=== PATIENT | female | born 1940 | race Caucasian/White ===

== ENCOUNTER 2017-02-24 09:03 | Observation (INO) | payer OTHER, MEDICARE ==
[~2017-02-24] VITALS: Ht 157.5 cm; Wt 94.3 kg
[~2017-02-24 09:03] MED LIST: ALTACE10 M1 PO; ASPIRIN EC81 M1 PO; ASPIRIN81 M4 PO; BENTYL20 MG PO; CLOPIDOGREL75 MG PO; CRESTOR20 MG PO; LANTUS SOL100 UNIT/1 SC; MECLIZINE HCL12.5 M1 PO; NOVOLOG MI100 UNIT/2 SC; PERCOCET 325 MG1 TA2 PO; PERCOCET 5-3251 EACH PO; PLAVIX75 M1 PO; TENORMIN25 M1 PO; TRAMADOL HCL50 M1 PO
--- NOTE | 2017-02-24 09:38 | ED SYNCOPE COMPLAINT ---
History of Present Illness General Chief Complaint: Syncope and Near-Syncope Stated Complaint: S/P SYNCOPE Source: patient, family, old records Exam Limitations: no limitations Vital Signs & Intake/Output Vital Signs & Intake/Output Vital Signs Date Time Temp Pulse Resp B/P B/P Pulse O2 O2 Flow FiO2 Mean Ox Delivery Rate 02/24 1729 97.5 60 18 172/74 98 Room Air Room Air 02/24 1404 97.8 60 20 170/84 99 Room Air 02/24 1228 168/80 02/24 1205 98.0 55 20 192/90 02/24 1144 192/90 02/24 1139 98.0 55 20 210/86 99 Room Air 02/24 1000 97 Room Air 02/24 0948 68 162/68 02/24 0906 97.8 66 18 196/76 96 Room Air Allergies Coded Allergies: No Known Allergies (01/06/16) Triage Note: 76 YEAR OLD FEMALE TO ER WITH HER DAUGHTER, PT IS FROM [facility] AND THIS AM HAD A SYNCOPLE EPISODE WHILE ON TOILET, PT STATES THAT SHE HAD TERRIBLE ABD CRAMPING AND WAS SITTING ON TOILET AND PASSED OUT, STATES THAT THE AIDE HELPED HER UP, DENIES HEAD STRIKE BUT STATES THAT R FLANK HAS SOME PAIN WHEN YOU TOUCH IT, BUT NOT NOW. PT STATES THAT SHE ATE GRAPES LAST PM AND THIS HAPPENS EVERY TIME SHE EATS THEM. DENIES CP/SOB. PT ALERT AND ORIENTED AND REFUSES WHEEL CHAIR Triage Nurses Notes Reviewed? yes Timing: single episode today Precipitating Factors: lightheadedness Loss of Consciousness: brief (seconds) Associated Symptoms: abdominal pain : No Patient currently breastfeeds: No HPI: 76yo female with hx of CAD s/p UT on ASA and Plavix, prior CVA, orthostatic hypotension presents to ED with daughter from assisted living [facility] facility following syncopal episode. Patient states that she woke up this morning feeling in her usual state of health. She is to the bathroom, was trying to have a bowel movement and was straining. She experienced abdominal cramping at this time and then felt as though she was going to pass out and lightheaded and the next thing she knew she was on the floor. Patient thinks she probably passed out for a few seconds. Patient had an aide who was able to help her up and was refusing ambulance to Hospital at that time. Patient has had prior episodes of syncope while having a bowel movement in the past. She is currently under workup for abnormal EKGs, her primary care physician believe she had an undetected UT recently. Patient is scheduled for carotid Doppler studies and echocardiogram next week. Patient complaining of some low back pain currently. The patient denies chest pain, shortness of breath, nausea, vomiting , diarrhea, constipation, hematochezia, headache, visual changes, numbness, tingling. (Oxana NICK,Magalie Myers) Reconcile Medications Aspirin (Ecotrin*) 81 MG TABLET.DR 1 TAB PO DAILY HEART HEALTH (Reported) Atenolol (Tenormin) 25 MG TABLET 1 TAB PO DAILY BP (Reported) Atorvastatin Calcium 80 MG TABLET 1 TAB PO QHS CHOLESTEROL (Reported) Clopidogrel Bisulfate (Plavix) 75 MG TABLET 1 TAB PO DAILY CVA Please restart this medication after the lumbar puncture on 01/17/16. Please monitor for any evidence of bleeding prior to this Cyanocobalamin (Vitamin B-12) (Vitamin B-12) 500 MCG TABLET 1 TAB PO DAILY SUPPLEMENT (Reported) Furosemide (Lasix) 20 MG TABLET 0.5 TAB PO EOD DIURETIC (Reported) Insulin Aspart Protam & Aspart (Novolog Mix 70-30 Flexpen Syrn) 100 UNIT/ML (70- 30) INSULN.PEN 25 UNITS SC QAM DIABETES (Reported) Insulin Glargine,Hum.rec.anlog (Lantus Solostar) 100 UNIT/ML (3 ML) INSULN.PEN 15 UNITS SC QPM DIABETES (Reported) Insulin Lispro (Humalog) (Unknown Strength) VIAL (Unknown Dose) SC ONCE PRN DM (Reported) before lunch. according to SS Meclizine HCl 12.5 MG TABLET 1 TAB PO TID PRN VERTIGO Ramipril (Altace) 5 MG CAPSULE 1 CAP PO 2000 BP (Reported) (Veronica POWELL,Elizabeth) Past History Travel History Traveled to [place] past 21 day No Medical History Any Pertinent Medical History? 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 No (Magalie Crawford) Review of Systems Review of Systems Constitutional: Reports: no symptoms. EENTM: Reports: no symptoms. Respiratory: Reports: no symptoms. Cardiovascular: Reports: see HPI. GI: Reports: see HPI. Genitourinary: Reports: no symptoms. Musculoskeletal: Reports: see HPI. Skin: Reports: no symptoms. Neurological/Psychological: Reports: see HPI. All Other Systems: Reviewed and Negative (Magalie Crawford) Physical Exam Physical Exam General Appearance: well developed/nourished, no apparent distress, alert, awake Head: atraumatic, normal appearance Eyes: Bilateral: normal appearance, PERRL, EOMI. Ears, Nose, Throat: normal pharynx, normal ENT inspection, hearing grossly normal Neck: normal inspection, supple, full range of motion, no midline tenderness Respiratory: normal breath sounds, no respiratory distress, lungs clear Cardiovascular: bradycardia Gastrointestinal: normal bowel sounds, soft, non-tender, no organomegaly Extremities: normal inspection, normal range of motion Psychiatric: awake, alert, oriented x 3 Cranial Nerves: normal hearing, normal speech, PERRL, CN II-XII intact Coordination/Gait: normal finger to nose Motor/Sensory: no motor/sensory deficits Skin: intact, normal color, warm/dry Core Measures ACS in differential dx? Yes CVA/TIA Diagnosis: No Sepsis Present: No Sepsis Focused Exam Completed? No (Magalie Crawford) Progress Differential Diagnosis: AMI, aortic dissection, aortic valve, drug induced syncope, orthostatic syncope, other valvular disease, pericardial tamponade, pulmonary embolus, TIA/CVA, vasodepressor syncope Plan of Care: Orders Procedure Date/time Status Heart Healthy Diet 02/24 D Active TROPONIN LEVEL 02/24 2200 Active EKG 02/24 2200 Active Vital Signs 02/24 1810 Active Teach/Educate 02/24 1810 Active Pain Treatment and Response 02/24 1810 Active Nutritional Intake, Monitor 12/23 1810 Active Isolation 02/24 1810 Active Intake & Output 02/24 1810 Active Patient Care Conference 02/24 1810 Active Activity/Ambulation 02/24 1810 Active TROPONIN LEVEL 02/24 1600 Complete EKG 02/[address] in observation 02/24 1519 Active ED Holding Orders 02/24 1519 Active ECHOCARDIOGRAM 02/24 1501 Active Pathway - chart 02/24 1459 Active House Staff 02/24 1459 Active Patient Data 02/24 1459 Active Code Status 02/24 1459 Active Add-on Test (ER Only) 02/24 1456 Active Patient Data 02/24 1357 Active Add-on Test (ER Only) 02/24 1101 Active FingerStick- Glucose 02/24 0949 Active Intake & Output 02/24 0948 Active THYROID STIMULATING HORMONE 02/24 0942 Complete LACTIC ACID 02/24 0942 Complete FREE T4 02/24 0942 Complete CULTURE,URINE 02/24 0934 Active URINALYSIS 02/24 0934 Complete TROPONIN LEVEL 02/24 0934 Complete PARTIAL THROMBOPLASTIN TIME 02/24 0934 Complete PROTHROMBIN TIME 02/24 0934 Complete COMPREHENSIVE METABOLIC PANEL 02/24 0934 Complete CBC WITHOUT DIFFERENTIAL 02/24 0934 Complete EKG 02/24 0912 Active VTE Mechanical Prophylaxis 02/24 UNK Active MISTAKE 02/24 UNK Active Telemetry/Waste Hand 02/24 UNK Active Current Medications Sig/Vianey Start time Last Medication Dose Stop Time Status Admin Aspirin Buffered 81 MG DAILY 02/25 1000 AC (Ecotrin) Atenolol 25 MG DAILY 02/25 1000 AC (Tenormin) Clopidogrel Bisulfate 75 MG DAILY 02/25 1000 AC (Plavix) Lisinopril 5 MG DAILY 02/25 1000 AC (Prinivil) Atorvastatin Calcium 80 MG AT BEDTIME 02/24 2200 AC (Lipitor) Heparin Sodium 5,000 UNIT Q8 02/24 2200 AC (Porcine) Insulin Detemir 7 UNITS BID 02/24 2200 AC (Levemir) Acetaminophen 650 MG Q6 02/24 1800 AC (Tylenol) Insulin Aspart 0 TIDAC 02/24 1700 AC (NovoLOG) Laboratory Tests 02/24/17 1653: Troponin I 0.02 02/24/17 1133: Urinalysis LIGHT H, Urine Color YEL, Urine Clarity CLEAR, Urine pH 6.0, Ur Specific [place] 1.020, Urine Protein 30 H, Urine Ketones NEG, Urine Nitrite NEG, Urine Bilirubin NEG, Urine Urobilinogen 0.2, Ur Leukocyte Esterase SMALL H , Ur Microscopic SEDIMENT EXAMINED, Urine RBC RARE, Urine WBC 3-5 H, Ur Epithelial Cells MOD H, Urine Bacteria FEW H, Hyaline Casts RARE H, Granular Casts RARE H, Urine Hemoglobin TRACE-LYSED, Urine Glucose NEG 02/24/17 0942: Anion Gap 15, Estimated GFR 22 L, BUN/Creatinine Ratio 19.1, Glucose 164 H, Lactic Acid 1.6, Calcium 9.1, Total Bilirubin 0.6, AST 31, ALT 36, Alkaline Phosphatase 118, Troponin I 0.01, Total Protein 6.7, Albumin 3.8, Globulin 2.9, Albumin/Globulin Ratio 1.3, TSH 2.080, Free T4 1.31, PT 11.7, INR 1.12, APTT 67 H, CBC w Diff NO MAN DIFF REQ, RBC 4.48, MCV 86.8, MCH 28.0, RDW 14.5, MPV 10.6 H, Gran % 73.2, Lymphocytes % 13.2 L, Monocytes % 9.7 H, Eosinophils % 3.3, Basophils % 0.6, Absolute Granulocytes 5.6, Absolute Lymphocytes 1.0 L, Absolute Monocytes 0.7 H, Absolute Eosinophils 0.3, Absolute Basophils 0, PUBS MCHC 32.3 L Microbiology 02/24 1133 URINE ROUT: Urine Culture - RECD The patient had syncopal episode today following bowel movement, likely vasovagal however patient's primary care doctor is concerned of a recent missed UT the patient was not evaluated for given EKG changes at primary care doctor's office. Today there have been no EKG changes from old EKG. Given this history continued telemetry monitoring is recommended. Spoke with Dr. Stone regarding patient who will consult patient tomorrow and agrees with plan of carotid ultrasound and echocardiogram are possible. Discussed this patient with case management who agreed that telemetry observation is acceptable given her clinical presentation. Discussed this patient with hospitalist Dr. Avila who accepts patient for tele observation. Diagnostic Imaging: Viewed by Me: Radiology Read. Discussed w/RAD: Radiology Read. Radiology Impression: PATIENT: SEGUNDO NORWOOD PRESENT AGE: 76 PATIENT ACCOUNT NO: [id number] : 38 LOCATION: [facility] ORDERING PHYSICIAN: Magalie NICK SERVICE DATE: 02/24/17 EXAM TYPE: CAT - CT CERV SPINE WO IV CONTRAST; CT HEAD WO IV CONTRAST EXAMINATION: CT HEAD W/O IV CONTRAST CT CERVICAL SPINE W/O IV CONTRAST CLINICAL INFORMATION: Syncopal episode today. Evaluate intracranial hemorrhage, fracture and/or malalignment. COMPARISON: Head CT, 01/06/2016. TECHNIQUE: Head - Contiguous axial imaging of the head was performed from the skull base to the vertex without the administration of intravenous contrast, and axial images are reconstructed at 0.625 mm, 2.5 mm and 5 mm slice thickness. Cervical spine - A volumetric, helical CT acquisition of the cervical spine was obtained without contrast; in addition to the standard set of axial images, multiplanar reformatted images were provided in the coronal and sagittal imaging planes. DLP: 930 mGy-cm (total ) FINDINGS: HEAD: There is an old, smoothly marginated, 1.5 cm AP soft tissue nodule of the left superior scalp, unchanged compared to 01/06/2016. No acute scalp hematoma. No intracranial hemorrhage, extra-axial fluid collection, mass or midline shift. Chronic patchy hypoattenuation within supratentorial white matter is compatible with microvascular ischemic change. Old left posterior cerebral artery territory infarct involving the occipital lobe. Otherwise, the mcclelland-white matter differentiation is maintained and there is no evidence of an acute major vascular territory infarction. The cerebral hemispheres are chronically atrophied and there is commensurate prominence of ventricles and sulci. There is atherosclerotic calcification of bilateral cavernous carotid and vertebral arteries. The calvarium is intact and the visualized paranasal sinuses , mastoid air cells and middle ear cavities are well aerated. CERVICAL SPINE: No acute fractures within anterior or posterior elements of the cervical spine. No prevertebral soft tissue swelling. The occipital condyles, atlas, axis and atlantoaxial articulation are intact. The cervical spine exhibits loss of lordotic curvature above the C5-C6 level. The ossification of the posterior longitudinal ligament at C2-C3 narrows the central spinal canal to 0.7 cm AP. At C5-C6, there is moderate loss of disc space, traction osteophyte formation and uncovertebral joint hypertrophy with osteophytes producing mild left and moderate right foraminal stenosis at this level. There is minimal degenerative retrolisthesis of C5 on C6. At C6-C7, there is mild degenerative disc space narrowing. No evidence of traumatic subluxation. There is a multinodular thyroid gland with left thyroid lobe larger than the right lobe. The largest nodule within the left thyroid lobe appears to measure up to 2 cm in size. Given the size of nodules, ultrasound imaging follow-up would be appropriate. The visualized lung apices are normal. The patient has a right chest wall medication port with partial visualization of the central catheter within the superior vena cava. IMPRESSION: 1. No acute intracranial pathology compared to 01/06/2016. 2. No acute fracture or traumatic subluxation in the degenerated cervical spine. 3. 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 4. Multinodular thyroid gland with largest left thyroid nodule of approximately 2 cm size. If not already performed at another institution, recommend thyroid ultrasound follow-up. DICTATED BY: Octavio Way MD DATE/TIME DICTATED:02/24/171052 JANITOR AND CLEANER:DAYANA DATE/TIME TRANSCRIBED:02/24/171052 CONFIDENTIAL, DO NOT COPY WITHOUT APPROPRIATE AUTHORIZATION. <Electronically signed in Other Vendor System> SIGNED BY: Octavio Way MD 02/24/17 1112, PATIENT: SEGUNDO NORWOOD PRESENT AGE: 76 PATIENT ACCOUNT NO: [id number] : 38 LOCATION: [facility] ORDERING PHYSICIAN: Magalie NICK SERVICE DATE: 02/24/17-1101 EXAM TYPE: CAT - CT ABD & PELVIS W/O IV CONTRAS EXAMINATION: CT ABDOMEN AND PELVIS WITHOUT CONTRAST CLINICAL INFORMATION: 76-year-old female with abdominal pain. Syncopal episode. COMPARISON: 04/01/2014. TECHNIQUE: Multidetector volumetric imaging was performed from the superior aspect of the liver through the pubic symphysis. Sagittal and coronal reformatted images were obtained on the technologist's workstation. In addition, reformatted images of the lumbar spine were generated at the technologist workstation. 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 LUNG BASES: Scattered linear, hazy opacities of atelectasis in the visualized bases. LIVER, GALLBLADDER, AND BILIARY TREE: Liver has normal size, contour and attenuation. Gallbladder is surgically absent and common bile duct measures up to 6-7 mm diameter. No intrahepatic bile duct dilatation. PANCREAS: Chronic, diffuse atrophy of the pancreas without evidence of focal lesion on these noncontrast images. No peripancreatic edema. SPLEEN: There is an old, somewhat fan-shaped area of calcification with overlying capsular retraction in the spleen, likely sequela of remote infarction. The splenic artery is densely calcified. ADRENAL GLANDS: Unremarkable. KIDNEYS AND URETERS: Chronic mild bilateral renal cortical atrophy and multiple renal arterial calcifications. No overt evidence of superimposed nephrolithiasis. No evidence of ureterolithiasis or hydroureteronephrosis. BLADDER: Unremarkable. GASTROINTESTINAL TRACT: Stomach is unremarkable. Loops of bowel are normal in caliber. The appendix is normal. No evidence of focal bowel wall edema, pneumatosis intestinalis or pneumoperitoneum. There are few scattered colonic diverticula without diverticulitis. No ascites or abscess. There is minimal edema along the anterior renal fascia. ABDOMINAL WALL: Small, 1.1 cm wide midline fascial defect in the periumbilical region with small fat-containing hernia (image 399, series 3). LYMPH NODES: A left retrocrural lymph node measuring 0.7 cm short axis dimension has increased in size compared to 2014. Multiple prominent lymph nodes are present within the retroperitoneum. The largest left para-aortic lymph node is 1.3 cm AP (image 243, series 3). The largest retrocaval lymph node is 1 cm AP. A left external iliac lymph node is 0.9 cm in short axis dimension. No inguinal lymphadenopathy. VASCULAR: Atherosclerotic calcification of the abdominal aorta and iliofemoral arteries without aneurysm. No retroperitoneal hematoma. There is dense atherosclerotic calcification of splenic and renal arteries. PELVIC VISCERA: Status post hysterectomy. No pelvic mass or free fluid. OSSEOUS STRUCTURES: The visualized ribs of the lower chest are intact. Pelvic bones and proximal femurs are intact. Mild osteoarthritis of both hips. Osteoarthritis of sacral iliac joints, as well. No sacral fracture. The reconstructed images of the lumbar spine are compared with abdomen-pelvis CT images of 04/01/2014. No acute findings are seen. The lumbar vertebral alignment is maintained. Bones appear diffusely osteoporotic. There is transitional lumbosacral anatomy with sacralization of the hypertrophied left L5 transverse process. Chronic, mild concave depression and small Schmorl's node of the L1 superior endplate. No acute fractures within anterior or posterior elements of the lumbar spine. There is mild levocurvature. At L3-L4 and L4-L5, there is chronic degenerative disc space narrowing, traction osteophyte formation and vacuum disc phenomenon. There is chronic multifactorial mild central canal stenosis at L3-L4 and L4-L5. IMPRESSION: 1. Severe atherosclerotic disease of aorta and branch vessels. No abdominal aorta aneurysm or retroperitoneal hematoma. There are no noncontrast imaging findings to raise suspicion for a dissection within the normal sized abdominal aorta. 2. No acute findings along the gastrointestinal tract. 3. The retroperitoneal lymphadenopathy is new compared to 04/01/2014. Further workup is recommended. 4. No acute fracture or subluxation within the chronically degenerated lumbar spine compared to 04/01/2014. DICTATED BY: Octavio Way MD DATE/TIME DICTATED:02/24 JANITOR AND CLEANER:DAYANA DATE/TIME TRANSCRIBED:02/24/171200 CONFIDENTIAL, DO NOT COPY WITHOUT APPROPRIATE AUTHORIZATION. <Electronically signed in Other Vendor System> SIGNED BY: Octavio Way MD 02/24/17 1229 CXR Impression: PATIENT: SEGUNDO NORWOOD PRESENT AGE: 76 PATIENT ACCOUNT NO: [id number] : 38 LOCATION: [facility] ORDERING PHYSICIAN: Magalie NICK SERVICE DATE: 02/24/17 EXAM TYPE: RAD - XRY-CHEST XRAY, PA AND LATERAL EXAMINATION: XR CHEST CLINICAL INFORMATION: Syncope COMPARISON: Chest radiograph from 04/01/2014 TECHNIQUE: 2 views of the chest were obtained. FINDINGS: There is a right internal jugular approach CT PowerPort with tip at the superior cavoatrial junction. Mildly prominent cardiac silhouette is unchanged. The mediastinal and hilar contours are unchanged. There is mildly prominent central pulmonary vasculature possibly representing congestion, without overt edema. No consolidative airspace opacity. No pleural effusion or pneumothorax. Multilevel degenerative change of the thoracic spine. Remote right proximal humerus fracture. IMPRESSION: Possible mild pulmonary vascular congestion. No overt edema. No airspace consolidation or pleural effusion. DICTATED BY: Sonya Rajput MD DATE/TIME DICTATED:02/24/171024 JANITOR AND CLEANER:SERRANO DATE/TIME TRANSCRIBED:02/24/171024 CONFIDENTIAL, DO NOT COPY WITHOUT APPROPRIATE AUTHORIZATION. <Electronically signed in Other Vendor System> SIGNED BY: Sonya Rajput MD 02/24/17 1034 Initial ED EKG: sinus bradycardia @59bpm, nonspecific ST changes Prior EKG: unchanged (01/07/16) (Oxana NICK,Magalie Myers) Departure Departure Disposition: STILL A PATIENT Condition: Stable Clinical Impression Primary Impression: Episode of syncope Qualifiers: Syncope type: unspecified Qualified Code: R55 - Syncope and collapse Secondary Impressions: CHF (congestive heart failure) Qualifiers: Congestive heart failure type: unspecified congestive heart failure type Congestive heart failure chronicity: unspecified congestive heart failure chronicity Qualified Code: I50.9 - Heart failure, unspecified Orthostatic hypotension Referrals: Mildred POWELL,Saman Kuhn (PCP/Family) Departure Forms: Customer Survey General Discharge Information Observation Note Spoke With: Margarita POWELL,Shima Physician Advisor Notified: CURT GONZALEZ DO Place Patient In: Non-ED OBS Care Area Rationale for Observation: My rational for observation is as follows [syncopal episode today with orthostatic hypotension, mild CHF, hypertension and possibly requiring IV antihypertensives, requiring cardiology consults with carotid ultrasound and echocardiogram]. (Magalie Crawford) PA/DISTILLERY MILLER Co-Sign Statement Statement: ED Attending supervision documentation- [X] I saw and evaluated the patient. I have also reviewed all the pertinent lab results and diagnostic results. I agree with the findings and the plan of care as documented in the PA's/DISTILLERY MILLER's documentation. [X] I have reviewed the ED Record and agree with the PA's/DISTILLERY MILLER's documentation. [] Additions or exceptions (if any) to the PAs/DISTILLERY MILLER's note and plan are summarized below: [] (Veronica POWELL,Elizabeth)
[2017-02-24 10:02] LABS: ABSOLUTE BASOPHIL COUNT 0 /CUMM (0.0-0.2); ABSOLUTE EOSINOPHIL COUNT 0.3 /CUMM (0.0-0.7); ABSOLUTE GRANULOCYTE CT 5.6 /CUMM (1.4-6.5); ABSOLUTE MONOCYTE COUNT 0.7 /CUMM (0.10-0.60); BASOPHIL % 0.6 % (0.0-2.0); EOSINOPHIL % 3.3 % (0-5); GRANULOCYTE % 73.2 % (42.2-75.2); HEMATOCRIT 38.9 % (37-47); MEAN CORPUSCULAR HGB CONC 32.3 G/DL (33.0-37.0); MEAN CORPUSCULAR VOLUME 86.8 FL (81.0-99.0); MEAN PLATELET VOLUME 10.6 FL (7.4-10.4); PLATELET COUNT 236 /CUMM (130-400); RBC DISTRIBUTION WIDTH 14.5 % (11.5-14.5); RED BLOOD CELL CT 4.48 /CUMM (4.20-5.40); WHITE BLOOD CELL COUNT 7.7 /CUMM (4.8-10.8)
[2017-02-24 10:09] LABS: PT 11.7 SEC (9.4-12.5)
--- NOTE | 2017-02-24 10:34 | RADIOLOGY REPORT ---
EXAMINATION: XR CHEST CLINICAL INFORMATION: Syncope COMPARISON: Chest radiograph from 04/01/2014 TECHNIQUE: 2 views of the chest were obtained. FINDINGS: There is a right internal jugular approach CT PowerPort with tip at the superior cavoatrial junction. Mildly prominent cardiac silhouette is unchanged. The mediastinal and hilar contours are unchanged. There is mildly prominent central pulmonary vasculature possibly representing congestion, without overt edema. No consolidative airspace opacity. No pleural effusion or pneumothorax. Multilevel degenerative change of the thoracic spine. Remote right proximal humerus fracture. IMPRESSION: Possible mild pulmonary vascular congestion. No overt edema. No airspace consolidation or pleural effusion.
[2017-02-24 11:04] LABS: PTT 67 SEC (25-37)
--- NOTE | 2017-02-24 11:12 | CT SCAN REPORT ---
EXAMINATION: CT HEAD W/O IV CONTRAST CT CERVICAL SPINE W/O IV CONTRAST CLINICAL INFORMATION: Syncopal episode today. Evaluate intracranial hemorrhage, fracture and/or malalignment. COMPARISON: Head CT, 01/06/2016. TECHNIQUE: Head - Contiguous axial imaging of the head was performed from the skull base to the vertex without the administration of intravenous contrast, and axial images are reconstructed at 0.625 mm, 2.5 mm and 5 mm slice thickness. Cervical spine - A volumetric, helical CT acquisition of the cervical spine was obtained without contrast; in addition to the standard set of axial images, multiplanar reformatted images were provided in the coronal and sagittal imaging planes. DLP: 930 mGy-cm (total) FINDINGS: HEAD: There is an old, smoothly marginated, 1.5 cm AP soft tissue nodule of the left superior scalp, unchanged compared to 01/06/2016. No acute scalp hematoma. No intracranial hemorrhage, extra-axial fluid collection, mass or midline shift. Chronic patchy hypoattenuation within supratentorial white matter is compatible with microvascular ischemic change. Old left posterior cerebral artery territory infarct involving the occipital lobe. Otherwise, the mcclelland-white matter differentiation is maintained and there is no evidence of an acute major vascular territory infarction. The cerebral hemispheres are chronically atrophied and there is commensurate prominence of ventricles and sulci. There is atherosclerotic calcification of bilateral cavernous carotid and vertebral arteries. The calvarium is intact and the visualized paranasal sinuses, mastoid air cells and middle ear cavities are well aerated. CERVICAL SPINE: No acute fractures within anterior or posterior elements of the cervical spine. No prevertebral soft tissue swelling. The occipital condyles, atlas, axis and atlantoaxial articulation are intact. The cervical spine exhibits loss of lordotic curvature above the C5-C6 level. The ossification of the posterior longitudinal ligament at C2-C3 narrows the central spinal canal to 0.7 cm AP. At C5-C6, there is moderate loss of disc space, traction osteophyte formation and uncovertebral joint hypertrophy with osteophytes producing mild left and moderate right foraminal stenosis at this level. There is minimal degenerative retrolisthesis of C5 on C6. At C6-C7, there is mild degenerative disc space narrowing. No evidence of traumatic subluxation. There is a multinodular thyroid gland with left thyroid lobe larger than the right lobe. The largest nodule within the left thyroid lobe appears to measure up to 2 cm in size. Given the size of nodules, ultrasound imaging follow-up would be appropriate. The visualized lung apices are normal. The patient has a right chest wall medication port with partial visualization of the central catheter within the superior vena cava. IMPRESSION: 1. No acute intracranial pathology compared to 01/06/2016. 2. No acute fracture or traumatic subluxation in the degenerated cervical spine. 3. 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 4. Multinodular thyroid gland with largest left thyroid nodule of approximately 2 cm size. If not already performed at another institution, recommend thyroid ultrasound follow-up.
--- NOTE | 2017-02-24 12:29 | CT SCAN REPORT ---
EXAMINATION: CT ABDOMEN AND PELVIS WITHOUT CONTRAST CLINICAL INFORMATION: 76-year-old female with abdominal pain. Syncopal episode. COMPARISON: 04/01/2014. TECHNIQUE: Multidetector volumetric imaging was performed from the superior aspect of the liver through the pubic symphysis. Sagittal and coronal reformatted images were obtained on the technologist's workstation. In addition, reformatted images of the lumbar spine were generated at the technologist workstation. DLP: 986 mGy-cm FINDINGS: PHARMACY STUDENT: Obese body habitus. LUNG BASES: Scattered linear, hazy opacities of atelectasis in the visualized bases. LIVER, GALLBLADDER, AND BILIARY TREE: Liver has normal size, contour and attenuation. Gallbladder is surgically absent and common bile duct measures up to 6-7 mm diameter. No intrahepatic bile duct dilatation. PANCREAS: Chronic, diffuse atrophy of the pancreas without evidence of focal lesion on these noncontrast images. No peripancreatic edema. SPLEEN: There is an old, somewhat fan-shaped area of calcification with overlying capsular retraction in the spleen, likely sequela of remote infarction. The splenic artery is densely calcified. ADRENAL GLANDS: Unremarkable. KIDNEYS AND URETERS: Chronic mild bilateral renal cortical atrophy and multiple renal arterial calcifications. No overt evidence of superimposed nephrolithiasis. No evidence of ureterolithiasis or hydroureteronephrosis. BLADDER: Unremarkable. GASTROINTESTINAL TRACT: Stomach is unremarkable. Loops of bowel are normal in caliber. The appendix is normal. No evidence of focal bowel wall edema, pneumatosis intestinalis or pneumoperitoneum. There are few scattered colonic diverticula without diverticulitis. No ascites or abscess. There is minimal edema along the anterior renal fascia. ABDOMINAL WALL: Small, 1.1 cm wide midline fascial defect in the periumbilical region with small fat-containing hernia (image 399, series 3). LYMPH NODES: A left retrocrural lymph node measuring 0.7 cm short axis dimension has increased in size compared to 01/30/2015. Multiple prominent lymph nodes are present within the retroperitoneum. The largest left para-aortic lymph node is 1.3 cm AP (image 243, series 3). The largest retrocaval lymph node is 1 cm AP. A left external iliac lymph node is 0.9 cm in short axis dimension. No inguinal lymphadenopathy. VASCULAR: Atherosclerotic calcification of the abdominal aorta and iliofemoral arteries without aneurysm. No retroperitoneal hematoma. There is dense atherosclerotic calcification of splenic and renal arteries. PELVIC VISCERA: Status post hysterectomy. No pelvic mass or free fluid. OSSEOUS STRUCTURES: The visualized ribs of the lower chest are intact. Pelvic bones and proximal femurs are intact. Mild osteoarthritis of both hips. Osteoarthritis of sacral iliac joints, as well. No sacral fracture. The reconstructed images of the lumbar spine are compared with abdomen-pelvis CT images of 04/01/2014. No acute findings are seen. The lumbar vertebral alignment is maintained. Bones appear diffusely osteoporotic. There is transitional lumbosacral anatomy with sacralization of the hypertrophied left L5 transverse process. Chronic, mild concave depression and small Schmorl's node of the L1 superior endplate. No acute fractures within anterior or posterior elements of the lumbar spine. There is mild levocurvature. At L3-L4 and L4-L5, there is chronic degenerative disc space narrowing, traction osteophyte formation and vacuum disc phenomenon. There is chronic multifactorial mild central canal stenosis at L3-L4 and L4-L5. IMPRESSION: 1. Severe atherosclerotic disease of aorta and branch vessels. No abdominal aorta aneurysm or retroperitoneal hematoma. There are no noncontrast imaging findings to raise suspicion for a dissection within the normal sized abdominal aorta. 2. No acute findings along the gastrointestinal tract. 3. The retroperitoneal lymphadenopathy is new compared to 04/01/2014. Further workup is recommended. 4. No acute fracture or subluxation within the chronically degenerated lumbar spine compared to 04/01/2014.
[2017-02-24] MEDS ORDERED: HUMALOG100 UNIT/2 SC (13:21)
[2017-02-24] MEDS ORDERED: POLYETHYLENE GL17 GM PO (13:22)
[2017-02-24] MEDS ORDERED: ATORVASTATIN CA80 M1 PO (13:22)
[2017-02-24] MEDS ORDERED: ONDANSETRON HCL4 MG PO (13:23)
[2017-02-24] MEDS ORDERED: TRAZODONE HCL50 M1 PO ×2 (13:24→13:25)
[2017-02-24] MEDS ORDERED: ACETAMINOPHEN325 M2 PO (13:25)
[2017-02-24] MEDS ORDERED: ALTACE5 M2 PO (13:25)
[2017-02-24] MEDS ORDERED: LASIX20 M1 PO (13:27)
[2017-02-24] MEDS ORDERED: VITAMIN B-12500 MC2 PO (13:28)
--- NOTE | 2017-02-24 16:01 | History & Physical ---
Rochelle Francis 02/24/17 1600: General Information and HPI Source of Information: patient, family Exam Limitations: no limitations History of Present Illness: She 76-year-old woman with past medical history of diabetes, coronary artery disease, [place] stroke, history of endometrial cancer stage IIIc. Status post total abdominal hysterectomy and bilateral salpingo-oophorectomy. status post 3 cycles of carbo/Taxol, completed 2 fractions IVRT, history of hypertension and CKD. She presented to ED with daughter from assisted living [facility] facility following syncopal episode. Patient states that she woke up this morning feeling in her usual state of health. She went to the bathroom, was trying to have a bowel movement and was straining. She experienced abdominal cramping at this time and then felt as though she was going to pass out and lightheaded and the next thing she knew she was on the floor. Patient thinks she probably passed out for a few seconds. She denies any presyncopal symptoms like chest pain or discomfort, palpitations, vision changes, diaphoresis. She denies any tongue bite, urinary or bowel incontinence. She denies any confusion after getting consciousness. She pulled the cord and for help. According to the daughter she had dizziness and vertigo since September this year and sees Dr. Santana. She has been started on meclizine for vertigo but it's not helping. Dr. Santana also explained that her dizziness and vertigo could be because she is not getting enough blood supply to her brain. Her blood pressure medication dose was also decreased from 10 mg to 5 mg. She also developed lower extremity swelling 3 weeks ago and saw her PCP who started her on 10 mg of Lasix every other day that according to patient is not helping much. Currently she is complaining of back pain. Denies any chest pain or discomfort, palpitations, dizziness or lightheadedness right now, diaphoresis, nausea. Denies any change in urinary or bowel habits. She also denies any tingling or numbness of any part of her body. Allergies/Medications Allergies: Coded Allergies: No Known Allergies (01/06/16) Home Med list Aspirin (Ecotrin*) 81 MG TABLET. 1 TAB PO DAILY HEART HEALTH (Reported) Atenolol (Tenormin) 25 MG TABLET 1 TAB PO DAILY BP (Reported) Atorvastatin Calcium 80 MG TABLET 1 TAB PO QHS CHOLESTEROL (Reported) Clopidogrel Bisulfate (Plavix) 75 MG TABLET 1 TAB PO DAILY CVA Please restart this medication after the lumbar puncture on 01/17/16. Please monitor for any evidence of bleeding prior to this Cyanocobalamin (Vitamin B-12) (Vitamin B-12) 500 MCG TABLET 1 TAB PO DAILY SUPPLEMENT (Reported) Furosemide (Lasix) 20 MG TABLET 0.5 TAB PO EOD DIURETIC (Reported) Insulin Aspart Protam & Aspart (Novolog Mix 70-30 Flexpen Syrn) 100 UNIT/ML (70- 30) INSULN.PEN 25 UNITS SC QAM DIABETES (Reported) Insulin Glargine,Hum.rec.anlog (Lantus Solostar) 100 UNIT/ML (3 ML) INSULN.PEN 15 UNITS SC QPM DIABETES (Reported) Insulin Lispro (Humalog) (Unknown Strength) VIAL (Unknown Dose) SC ONCE PRN DM (Reported) before lunch. 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 self Services at Home: None Primary Language: Panamanian ETOH Use: denies use Illicit Drug Use: denies illicit drug use Functional Ability ADLs Independent: dressing, eating, toileting, bathing. Ambulation: independent Review of Systems Review of Systems Constitutional: Reports: see HPI. Exam & Diagnostic Data Last 24 Hrs of Vital Signs/I&O Vital Signs Date Time Temp Pulse Resp B/P B/P Pulse O2 O2 Flow FiO2 Mean Ox Delivery Rate 02/24 1729 97.5 60 18 172/74 98 Room Air Room Air 02/24 1404 97.8 60 20 170/84 99 Room Air 02/24 1228 168/80 02/24 1205 98.0 55 20 192/90 02/24 1144 192/90 02/24 1139 98.0 55 20 210/86 99 Room Air 02/24 1000 97 Room Air 02/24 0948 68 162/68 02/24 0906 97.8 66 18 196/76 96 Room Air Intake & Output 02/24 1600 02/24 0800 02/24 0000 Intake Total Output Total Balance Patient 208 lb Weight Physical Exam General Appearance Alert, Oriented X3, Cooperative, No Acute Distress Neck Supple, No JVD Cardiovascular Regular Rate Lungs Clear to Auscultation Abdomen Normal Bowel Sounds, Soft, No Tenderness Neurological Normal Speech, Strength at 5/5 X4 Ext, Sensation Intact, Cranial Nerves 3-12 NL Extremities 1+ pitting edema Last 24 Hrs of Labs/J Luis: Laboratory Tests 02/24/17 1653: Troponin I Pending 02/24/17 1133: Urinalysis LIGHT H, Urine Color YEL, Urine Clarity CLEAR, Urine pH 6.0, Ur Specific [place] 1.020, Urine Protein 30 H, Urine Ketones NEG, Urine Nitrite NEG, Urine Bilirubin NEG, Urine Urobilinogen 0.2, Ur Leukocyte Esterase SMALL H , Ur Microscopic SEDIMENT EXAMINED, Urine RBC RARE, Urine WBC 3-5 H, Ur Epithelial Cells MOD H, Urine Bacteria FEW H, Hyaline Casts RARE H, Granular Casts RARE H, Urine Hemoglobin TRACE-LYSED, Urine Glucose NEG 02/24/17 0942: Anion Gap 15, Estimated GFR 22 L, BUN/Creatinine Ratio 19.1, Glucose 164 H, Lactic Acid 1.6, Calcium 9.1, Total Bilirubin 0.6, AST 31, ALT 36, Alkaline Phosphatase 118, Troponin I 0.01, Total Protein 6.7, Albumin 3.8, Globulin 2.9, Albumin/Globulin Ratio 1.3, TSH 2.080, Free T4 1.31, PT 11.7, INR 1.12, APTT 67 H, CBC w Diff NO MAN DIFF REQ, RBC 4.48, MCV 86.8, MCH 28.0, RDW 14.5, MPV 10.6 H, Gran % 73.2, Lymphocytes % 13.2 L, Monocytes % 9.7 H, Eosinophils % 3.3, Basophils % 0.6, Absolute Granulocytes 5.6, Absolute Lymphocytes 1.0 L, Absolute Monocytes 0.7 H, Absolute Eosinophils 0.3, Absolute Basophils 0, PUBS MCHC 32.3 L Microbiology 02/24 1133 URINE ROUT: Urine Culture - RECD Diagnostic Data EKG Results Normal sinus rhythm without acute ST-T wave changes Assessment/Plan Assessment: She is 76-year-old woman with past medical history of diabetes, coronary artery disease, [place] stroke, history of endometrial cancer stage IIIc. Status post total abdominal hysterectomy and bilateral salpingo-oophorectomy. status post 3 cycles of carbo/Taxol, completed 2 fractions IVRT, history of hypertension and CKD. Upon arrival to ER her temperature was 97.8, pulse 66, respiratory rate 18, blood pressure 196/76 that went down to 170/84 after Vasotec, oxygen saturation 96% on room air. Her pertinent labs are sodium 146, BUN 42, creatinine 2.2 ( creatinine 1.7 a year ago). CT abdomen and pelvis without contrast was done that showed severe atherosclerotic disease of aorta and branch vessels. Retroperitoneal lymphadenopathy, new compared to scan in 2015. Head CT showed no acute intracranial pathology. Cervical spine CT showed negative acute fracture or traumatic subluxation. There was an incidental finding of multinodular thyroid gland with largest left thyroid nodule of approximately 2 cm size. Chest x-ray showed mild pulmonary vascular congestion. PLAN 1. Syncopal episode 2. Hypertension 3. Chronic kidney disease 4. Incidental finding of retroperitoneal lymphadenopathy compared with scan in 2015. Please note that patient has history of uterine cancer status post hysterectomy and BSO. Status post chemoradiation. Radiotherapy was discontinued as patient had a stroke. Oncologist Dr. Forrest Lopes 5. Incidental finding of multinodular thyroid gland with largest left thyroid nodule of approximately 2 cm size. Thyroid function tests including TSH and free T4 normal. PLAN * Monitor vitals every shift * Telemeter monitoring. Watch for any abnormal rhythm * Serial EKGs and troponins * Cardio consult * Carotid Doppler ultrasound * Echocardiogram * Continue atenolol and Ramipril for now * Will try to get baseline creatinine level from PCP office * Monitor kidney functions daily * Insulin Levemir and NovoLog sliding scale * Accu-Cheks before each meal * Continue aspirin and Plavix and statin * DVT prophylaxis * FC As Ranked By This Provider Problem List: 1. Syncope and collapse Core Measures/Misc (11/19) Acute Coronary Syndrome ACS Diagnosis: No Congestive Heart Failure Congestive Heart Failure Diagnosis No Cerebrovascular Accident CVA/TIA Diagnosis: No VTE (View Protocol) VTE Risk Factors Acute Medical Illness No Mechanical VTE Prophylaxis d/t Other No VTE Pharm Prophylaxis d/t Other Sepsis (View protocol) Sepsis Present: No Shima Avila 02/24/17 1601: Attending MD Review Statement Attending Statement Attending MD Statement: examined this patient, discuss w/resident/PA/SOFTWARE TEST ENGINEER, agreed w/resident/PA/SOFTWARE TEST ENGINEER, discussed with family, reviewed EMR data (avail), discussed with nursing, discussed with case mgmt, reviewed images, amended to note Attending Assessment/Plan: 76 o/f with pmh of stroke and ?CAD with abnormal EKG changes, She is on ASA/ plavix for CVA. Patient comes in observation telemetry for brief syncopal episode and came back normal after epsiode. Patient had previous episode few years ago. She had abdominal cramping before syncope. She is no tongue biting, urinary/bowel incontinence. Follow Dr Santana as outpatient who dcreased bp med altace to 5 mg. PCP started on lasix 10 mg qod for bilateral lower extremity swelling. Patient has uncontrolled hypertension on presentation with Cr 2.2 possible CKD Plan is to Obtain serial cardiac enzymes, carotid USG, echo ip vs op, check orthostasis, hold lasix, monitor labs, cardio consult. gi/dvt prophylaxis full code Patient is found to have new onset retroperitoneal lymphadenopathy 1cm para- aortic in history of uterine cancer.
--- NOTE | 2017-02-24 17:38 | ULTRASOUND REPORT ---
EXAMINATION: US DUPLEX CAROTID AND VERTEBRAL CLINICAL INFORMATION: Syncope COMPARISON: 01/06/2016 TECHNIQUE: Real-time ultrasound and Doppler techniques (integrating B-mode 2D vascular images, Doppler spectral analysis and color flow Doppler imaging) were utilized to interrogate the extracranial carotid and vertebral arteries bilaterally. The degree of stenosis determined by criteria similar to NASCET. FINDINGS: RIGHT VESSELS - There is antegrade flow within the carotid and vertebral arteries. Calcified, shadowing atherosclerotic plaque of the carotid bulb/bifurcation. No evidence of ulcerated plaque. Doppler derived peak systolic velocity measurements (cm/sec) were as follows: Distal CCA: 60 ICA: 107 (with end diastolic of 22) ECA: 79 Vertebral: 30 ICA/CCA ratio is 1.78 LEFT VESSELS - There is antegrade flow within the carotid and vertebral arteries. Calcified, shadowing atherosclerotic plaque of the carotid bulb/bifurcation. No evidence of ulcerated plaque. Doppler derived peak systolic velocity measurements (cm/sec) were as follows: Distal CCA: 63 ICA: 95 (with end diastolic of 24) ECA: 85 Vertebral: 73 ICA/CCA ratio is 1.50 IMPRESSION: Atherosclerotic plaque of the carotid bulb/bifurcation, bilaterally, with sears scale and Doppler imaging findings suggestive of < 50% bilateral ICA stenosis. No interval development of a hemodynamically significant stenosis compared to 01/06/2016.
[2017-02-24 18:46] VITALS: BP 160/78
[2017-02-24 22:33] VITALS: BP 150/80
[2017-02-25 06:46] VITALS: BP 170/82
[2017-02-25 08:32] VITALS: BP 164/82
--- NOTE | 2017-02-25 09:12 | PN-Observation ---
Candis Joe MD 02/25/17 0912: Observation Note Observation Note _ I have personally examined SEGUNDO NORWOOD. her disposition is uncertain at this time. Before a determination can be made, she requires continued observation for the following reasons : syncopal episode Assessment/Plan Assessment: Assessment: 76-year-old woman with past medical history of diabetes, coronary artery disease , pontine stroke, history of endometrial cancer stage IIIc. Status post total abdominal hysterectomy and bilateral salpingo-oophorectomy. status post 3 cycles of carbo/taxol, history of hypertension and CKD. CT abdomen and pelvis without contrast was done that showed severe atherosclerotic disease of aorta and branch vessels. Retroperitoneal lymphadenopathy, new compared to scan in 2015. Head CT showed no acute intracranial pathology. Cervical spine CT showed negative acute fracture or traumatic subluxation. There was an incidental finding of multinodular thyroid gland with largest left thyroid nodule of approximately 2 cm size. Chest x-ray showed mild pulmonary vascular congestion. PLAN 1. Syncopal episode: likely due to dehydration (INCREASED BUN, CR, SERUM NA) and vasovagal as patient was straining during BM at the time. Patient recently started on Lasix. -Monitor vitals q shift -Troponins and EKGs normal -Carotid doppler normal -Echo showed moderate LV hypertrophy with hyperdeynamic systolic function SUGGESTIVE OF DEHYDRATION with an impaired LV relaxation. EF 80% on visual estimation. -As per cardiology, cardiac cause for edema of lower legs cannot be excluded. Recommendation is to stop Lasix and have her followup with Dr. tSone for repeat echo and further elucidation of the cause of syncope. Patient is currently on Plavix, ASA, Lipitor, lisinopril, and atenolol for cardiac meds. 2. Hypertension -Continue Lisinopril 3. Chronic kidney disease -Monitor renal function 4. Incidental finding of retroperitoneal lymphadenopathy compared with scan in 2015. Please note that patient has history of uterine cancer status post hysterectomy and BSO. Status post chemoradiation. Radiotherapy was discontinued as patient had a stroke. Oncologist Dr. Forrest Lopes. -Patient has been urged to follow up with Dr. Lopes 5. Incidental finding of multinodular thyroid gland with largest left thyroid nodule of approximately 2 cm size. Thyroid function tests including TSH and free T4 normal. -Monitor with PCP outpatient 6. DM -Insulin Levemir and NovoLog sliding scale -Accu-Cheks before each meal DVT prophylaxis ALPS and pharm FC Problem List: 1. Syncope and collapse 2. CKD (chronic kidney disease) Subjective Follow-up For: syncopal episode hypertension ckd Tele-Events Since Last Visit: normal sinus rhythm rates 60-89 prolonged pr .22 Subjective: Patient was seen and examined bedside. She states that she is feeling "ok" and denies any chest pain, shortness of breath, nausea, vomiting. Denies dizziness or lightheadedness. Review of Systems Constitutional: Reports: no symptoms. EENTM: Reports: no symptoms. Cardiovascular: Reports: no symptoms. Respiratory: Reports: no symptoms. Gastrointestinal: Reports: no symptoms. Genitourinary: Reports: no symptoms. Musculoskeletal: Reports: back pain. Skin: Reports: no symptoms. Neurological/Psychological: Reports: no symptoms. Objective Last 24 Hrs of Vital Signs/I&O Heart rate 71, blood pressure 164/82, 96% oxygen saturation on room air Physical Exam General Appearance: Alert, Oriented X3, Cooperative, No Acute Distress Skin: No Rashes Skin Temp/Moisture Exam: Warm/Dry Sepsis Skin Exam (color): Normal for Ethnicity HEENT: Atraumatic Neck: Supple, No JVD Cardiovascular: Regular Rate, Normal S1, Normal S2, No Murmurs Lungs: Clear to Auscultation, Normal Air Movement Abdomen: Normal Bowel Sounds, Soft Neurological: Normal Speech, Strength at 5/5 X4 Ext, Normal Tone, Sensation Intact, Cranial Nerves 3-12 NL Extremities: No Clubbing, No Cyanosis, Normal Pulses, mild edema lower legs bilaterally Vascular: Normal Pulses Sepsis Peripheral Pulse Location: Radial Sepsis Peripheral Pulse Exam: Normal Sepsis Cap Refill Exam: <2 Sec Shima Avila 02/25/17 1316: Attending Addendum Attending Brief Note 76 o/f with pmh of stroke and ?CAD with abnormal EKG changes, She is on ASA/ plavix for CVA. Patient comes in observation telemetry for brief syncopal episode and came back normal after epsiode. Patient had previous episode few years ago. She had abdominal cramping before syncope. She is no tongue biting, urinary/bowel incontinence. Follow Dr Santana as outpatient who dcreased bp med altace to 5 mg. PCP started on lasix 10 mg qod for bilateral lower extremity swelling. Patient has uncontrolled hypertension on presentation with Cr 2.2 possible CKD. Patient serial cardiac enzymes negative for UT, Carotid USG with no new hemodynamically significant stenosis, echo as o/p scheduled on sunday as outpatient, held lasix, cardio f/u as op. Patient is found to have new onset retroperitoneal lymphadenopathy 1cm para- aortic in history of uterine cancer s/p hystercetomy. Follow up PCP for abnormal CT findings. I educated patient about this finding and please follow up with PCP in few days after discharge. Patient is vitally stable for discharge.
--- NOTE | 2017-02-25 13:41 | Cons- Cardiology ---
General Information and HPI Consulting Request Date of Consult: 02/25/17 Requested By: Shima Avila MD History of Present Illness: Yady is a 76 year old female with history of hypertension, diabetes, pontine stroke, coronary artery disease and prior episode of syncope. She also carries a history of endometrial cancer. On the day of admission, this patient sat down on the toilet to defecate and was straining with some lightheadedness. Upon arising she quickly passed out without any palpitations. She does not think that she was on the ground for very long. Upon regaining consciousness, she was alert and pulled a call light for help. She was found on the floor and obtained help getting up. At her baseline, she is mildly active without shortness of breath, chest discomfort, lightheadedness or palpitations. She has noted some recent leg swelling which is currently resolved. It should be noted that this patient had an elevated serum sodium, BUN and her creatinine was elevated beyond baseline upon admission consistent with mild dehydration. According to the patient's daughter, this patient has had dizziness and vertigo since September of this year and sees Dr. Santana of neurology. She had been started on meclizine for vertigo with little effect. but it's not helping. Dr. Santana also explained that her dizziness and vertigo could be because she is not getting enough blood supply to her brain. Lisinopril was decreased from 10 mg to 5 mg. She also developed lower extremity swelling 3 weeks ago and saw her PCP who started her on 10 mg of Lasix every other day. Allergies/Medications Allergies: Coded Allergies: No Known Allergies (01/06/16) Home Med List: Aspirin (Ecotrin*) 81 MG TABLET.DR 1 TAB PO DAILY HEART HEALTH (Reported) Atenolol (Tenormin) 25 MG TABLET 1 TAB PO DAILY BP (Reported) Atorvastatin Calcium 80 MG TABLET 1 TAB PO QHS CHOLESTEROL (Reported) Clopidogrel Bisulfate (Plavix) 75 MG TABLET 1 TAB PO DAILY CVA Please restart this medication after the lumbar puncture on 01/17/16. Please monitor for any evidence of bleeding prior to this Cyanocobalamin (Vitamin B-12) (Vitamin B-12) 500 MCG TABLET 1 TAB PO DAILY SUPPLEMENT (Reported) Furosemide (Lasix) 20 MG TABLET 0.5 TAB PO EOD DIURETIC (Reported) Insulin Aspart Protam & Aspart (Novolog Mix 70-30 Flexpen Syrn) 100 UNIT/ML (70- 30) INSULN.PEN 25 UNITS SC QAM DIABETES (Reported) Insulin Glargine,Hum.rec.anlog (Lantus Solostar) 100 UNIT/ML (3 ML) INSULN.PEN 15 UNITS SC QPM DIABETES (Reported) Insulin Lispro (Humalog) (Unknown Strength) VIAL (Unknown Dose) SC ONCE PRN DM (Reported) before lunch. according to SS Meclizine HCl 12.5 MG TABLET 1 TAB PO TID PRN VERTIGO Ramipril (Altace) 5 MG CAPSULE 1 CAP PO 2000 BP (Reported) Review of Systems Review of Systems: A review of systems is remarkable for leg swelling. Past History Travel History Traveled to [place] past 21 day No Medical History Blood Transfusion Hx: No Neurological: CVA, peripheral neuropathy (STROKE), stroke EENT: NONE Cardiovascular: CAD, hypertension, hyperlipidemia, myocardial infarction Respiratory: NONE Gastrointestinal: NONE Hepatic: cholecystitis Renal: chronic kidney disease Musculoskeletal: sciatica Psychiatric: NONE Endocrine: diabetes Blood Disorders: NONE Cancer(s): endometrial cancer ACCESS SERVICES REPRESENTATIVE/Reproductive: NONE, endometrial cancer Surgical History Surgical History: hysterectomy Psychosocial History Who Do You Live With? self Services at Home: None Primary Language: Turkmen Smoking Status: Never Smoked ETOH Use: denies use Illicit Drug Use: denies illicit drug use Functional Ability ADLs Independent: dressing, eating, toileting, bathing. Ambulation: independent Exam & Diagnostic Data Vital Signs and I&O Vital Signs Date Time Temp Pulse Resp B/P B/P Pulse O2 O2 Flow FiO2 Mean Ox Delivery Rate 02/25 0832 71 164/82 02/25 0832 71 164/82 02/25 0646 98.2 68 20 170/82 96 Room Air 02/25 0000 Room Air 02/24 2233 98.3 66 20 150/80 95 Room Air 02/24 1846 64 160/78 02/24 1729 97.5 60 18 172/74 98 Room Air Room Air 02/24 1404 97.8 60 20 170/84 99 Room Air Intake & Output 02/25 1600 02/25 0800 02/25 0000 02/24 1600 02/24 0800 02/24 0000 Intake Total 400 200 Output Total 650 Balance -250 200 Intake, Oral 400 200 Output, Urine 650 Patient 208 lb 208 lb Weight Physical Exam: General: WD/WN female in NAD; alert and oriented x 3 HEENT: NC/AT, PERRL, EOMI Neck: no JVD, no carotid bruit Heart: RRR with 2/6 systolic murmur Lungs: clear bilaterally Abdomen: soft, obese, NT, +ve bowel sounds Extremities: no edema Assessment/Plan Assessment/Plan * This patient had a syncopal episode due to dehydration combined with straining. She was recently started on Lasix and in that setting demonstrated an increased serum sodium, and increased BUN and creatinine consistent with dehydration. In addition, straining (Valsalva) while moving her bowels decreases venous return and will cause a drop in BP. This patient may have leg edema due to obesity or dependent edema although a cardiac cause cannot be unequivocally excluded. I would stop her Lasix but have her follow up in the office for further evaluation and for a repeat echo. Consult Acknowledgment - Thank you for your consult request.
--- NOTE | 2017-02-25 14:42 | Patient Discharge Instructions ---
Discharge Instructions General Discharge Information You were seen/treated for: SYNCOPE Special Instructions: 1. PLEASE FOLLOW UP WITH PCP IN ONE WEEK FOR ABNORMAL CT FINDINGS. 2. PLEASE FOLLOW UP WITH DR. TAFOYA FOR ECHOCARDIOGRAM AND EVALUATION IN THE NEXT WEEK. Diet Continue normal diet: Yes Activity Full Activity/No Limits: Yes Acute Coronary Syndrome Inclusion Criteria At DC or during hospital stay patient has or had the following: ACS DIAGNOSIS No Discharge Core Measures Meds if any: Prescribed or Continued at Discharge Meds if any: NOT Prescribed or Continued at Discharge Congestive Heart Failure Inclusion Criteria At DC or during hospital stay patient has or had the following: CHF DIAGNOSIS No Discharge Core Measures Meds if any: Prescribed or Continued at Discharge Meds if any: NOT Prescribed or Continued at Discharge Cerebrovascular accident Inclusion Criteria At DC or during hospital stay patient has or had the following: CVA/TIA Diagnosis No Discharge Core Measures Meds if any: Prescribed or Continued at Discharge Meds if any: NOT Prescribed or Continued at Discharge Venous thromboembolism Inclusion Criteria VTE Diagnosis No VTE Type NONE VTE Confirmed by (Test) NONE Discharge Core Measures - Per Current guidelines, there needs to be overlap - treatment for the first 5 days of Warfarin therapy. - If discharged on Warfarin prior to 5 days of - overlap therapy, the patient will need to be - assessed for post discharge needs including - *Post discharge parental anticoagulation - *Warfarin and/or parental anticoagulation education - *Follow up date to check INR post discharge At least 5 days overlap therapy as Inpatient No Meds if any: Prescribed or Continued at Discharge Note: Overlap Therapy is Warfarin and Anticoagulant Meds if any: NOT Prescribed or Continued at Discharge
--- NOTE | 2017-02-25 19:42 | ECHOCARDIOGRAM REPORT ---
SEGUNDO NORWOOD Age: 76 : 1940 Gender: F Exam Date: 02/25/2017 08:47 Exam Location: [facility] Ht (in): 62 Wt (lb): 208 BSA: 2.08 BP: 170 / 82 Ordering Physician: EMPERATRIZ LAWRENCE MD Referring Physician: Federico Stone MD, PhD Technologist: Padmini Horowitz [facility] Room Number: 178 Indications: HYPERTENSION Rhythm: Sinus Technical Quality: fair FINDINGS Left Ventricle Small left ventricular size with moderate left ventricular hypertrophy. Hypderdynamic systolic function with no obvious regional wall motion abnormalities. Diastolic filling pattern is consistent with impaired LV relaxation. The ejection fraction is visually estimated at 80%. Right Ventricle The right ventricle is normal in size and function. Right Atrium The right atrium is normal in size. Left Atrium The left atrium is normal in size. The interatrial septum is intact. Mitral Valve The mitral valve is normal in structure and function. There is no mitral regurgitation. Aortic Valve Structurally normal aortic valve without significant sclerosis or stenosis. There is no aortic regurgitation. Tricuspid Valve The tricuspid valve is normal in structure and function. There is trace tricuspid regurgitation. Pulmonary artery systolic pressure is normal. Pulmonic Valve Structurally normal pulmonic valve. There is trace pulmonic regurgitation. Pericardium Normal pericardium without effusion. No pleural effusion. Great Vessels Normal aortic root dimension. The aortic arch and great vessels are well seen and are normal. CONCLUSIONS 1. Small, possibly underfilled left ventricle with moderate left ventricular hypertrophy. 2. Hyperdynamic EF of 80% with impaired LV relaxation. 3. Trace tricuspid regurgitation. 4. Trace pulmonic regurgitation. Federico Stone M.D. (Electronically Signed) Final Date: 25 February 2017 19:41 MEASUREMENTS (Male / Female) Normal Values 2D ECHO LV Diastolic Diameter PLAX 3.8 cm 4.2 - 5.9 / 3.9 - 5.3 cm LV Systolic Diameter PLAX 2.1 cm 2.1 - 4.0 cm LV Fractional Shortening PLAX 44.7 % 25 - 46 % LV Ejection Fraction 2D Teich 76.7 % IVS Diastolic Thickness 1.2 cm LVPW Diastolic Thickness 1.3 cm LV Relative Wall Thickness 0.7 RV Internal Dim ED PLAX 2.5 cm 1.9 - 3.8 cm LVOT Diameter 2.1 cm Aortic Root Diameter 2.6 cm LA Systolic Diameter LX 3.9 cm 3.0 - 4.0 / 2.7 - 3.8 cm LA Volume 46.0 cm 18 - 58 / 22 - 52 cm Ascending Aorta Diameter 3.2 cm DOPPLER AV Peak Velocity 234.0 cm/s AV Peak Gradient 21.9 mmHg AV Mean Velocity 152.0 cm/s AV Mean Gradient 11.0 mmHg AV Velocity Time Integral 47.8 cm LVOT Peak Velocity 131.0 cm/s LVOT Peak Gradient 6.9 mmHg LVOT Mean Velocity 85.3 cm/s LVOT Mean Gradient 3.0 mmHg LVOT Velocity Time Integral 25.3 cm LVOT Stroke Volume 87.6 cm AV Area Cont Eq vti 1.8 cm AV Area Cont Eq pk 1.9 cm MV Peak Velocity 119.0 cm/s MV Peak Gradient 5.7 mmHg MV Mean Velocity 69.1 cm/s MV Mean Gradient 2.0 mmHg Mitral E Point Velocity 100.0 cm/s Mitral A Point Velocity 115.0 cm/s Mitral E to A Ratio 0.9 MV PHT Velocity 104.0 cm/s MV Deceleration [place] 420.0 cm/s MV Pressure Half Time 74.3 ms MV Area PHT 3.0 cm MV Deceleration Time 293.0 ms TR Peak Velocity 216.0 cm/s TR Peak Gradient 18.7 mmHg Right Atrial Pressure 5.0 mmHg Pulmonary Artery Systolic Pressu 23.7 mmHg Right Ventricular Systolic Press 23.7 mmHg PV Peak Velocity 123.5 cm/s PV Peak Gradient 6.1 mmHg PV Mean Velocity 82.1 cm/s PV Mean Gradient 3.5 mmHg PV Velocity Time Integral 27.0 cm LV E' Lateral Velocity 4.9 cm/s Mitral E to LV E' Lateral Ratio 20.5 LV E' Septal Velocity 5.4 cm/s Mitral E to LV E' Septal Ratio 18.7
== END 2017-02-25 16:20 ==
LOC: ERH 09:03 → ERHI 15:19 → ENRESERV 15:55 → ENTRNSPT 17:32 → 1NO 17:56 → CMPTRNSPT 18:30 → ENPENDDIS 02-25 14:56 → 1NO 02-25 16:20
PROVIDERS: Physician Assistant
DX: R55 Syncope and collapse (principal); E11.9 Type 2 diabetes mellitus without complications; I25.10 Atherosclerotic heart disease of native coronary artery without angina pectoris; Z86.73 Personal history of transient ischemic attack (TIA), and cerebral infarction without residual deficits; Z85.89 Personal history of malignant neoplasm of other organs and systems; E11.22 Type 2 diabetes mellitus with diabetic chronic kidney disease; I12.9 Hypertensive chronic kidney disease with stage 1 through stage 4 chronic kidney disease, or unspecified chronic kidney disease; N18.9 Chronic kidney disease, unspecified; Z79.82 Long term (current) use of aspirin; E11.42 Type 2 diabetes mellitus with diabetic polyneuropathy; E78.5 Hyperlipidemia, unspecified; I21.9 Acute myocardial infarction, unspecified; M54.30 Sciatica, unspecified side; E86.0 Dehydration; Z79.899 Other long term (current) drug therapy
CPT/HCPCS: 6020; 36415; 74176; 81001; 87086; 93005; 93010; 93306; 96374; G0378; J1644